=== PATIENT | male | born 1950 | race Caucasian/White ===

== ENCOUNTER 2024-05-20 13:45 | Outpatient (RCR) | payer OTHER, SELFPAY ==
[2024-04-07 15:21] VITALS: BP 140/58; PULSE 51; RESP 16; O2SAT 100
[2024-04-07 15:36] VITALS: PULSE 51
== END 2024-05-25 10:28 | disposition home or self-care (01) ==
LOC: ANHCPREHAB 13:45
PROVIDERS: PCP Family Medicine; Visit Provider Internal Medicine Cardiovascular Disease
DX: Z95.1 Presence of aortocoronary bypass graft (principal)
CPT/HCPCS: 93798

== ENCOUNTER 2025-02-23 12:32 | Emergency (ER) | payer OTHER, SELFPAY ==
[2025-02-23 12:38] VITALS: BP 127/71; PULSE 88; RESP 18; TEMP 38.4; O2SAT 98
--- NOTE | 2025-02-23 12:40 | ED.URI ---
HPI - URI/Sore Throat General Chief Complaint: Upper Respiratory Infection Stated Complaint: Fever Time Seen by Provider: 02/23/25 12:33 Source: patient Mode of arrival: ambulatory Limitations: no limitations History of Present Illness HPI Narrative: Patient is a 74-year-old male who presents with slight cough, congestion, fatigue and fever that started yesterday. States he took 2 500 mg Tylenol yesterday with the highest fever of 102.9. Has only taken 1 500 mg Tylenol today. Denies any nausea, vomiting, diarrhea, chest pain, shortness breath, body aches. Related Data Home Medications ?Medication ?Instructions ?Recorded ?Confirmed ?Last Taken ?Type amlodipine 5 mg tablet mg 02/23/25 Unknown History carvedilol 3.125 mg tablet mg 02/23/25 Unknown History eplerenone 25 mg tablet mg 02/23/25 Unknown History olmesartan 40 mg tablet mg 02/23/25 Unknown History rosuvastatin 40 mg tablet mg 02/23/25 Unknown History Allergies Allergy/AdvReac Type Severity Reaction Status Date / Time No Known Allergies Allergy Verified 02/23/25 12:33 Review of Systems Review of Systems: All systems reviewed & are unremarkable except as noted in HPI and below Constitutional: Constitutional: Denies chills, Reports fatigue, Reports fever(s), Denies headache(s), Denies malaise and Denies weakness Eyes: Eyes: Denies blurry vision, Denies itchy eyes and Denies loss of vision ENT: Denies otalgia, Denies headache(s), Reports nasal congestion, Denies sinus pain and Denies sore throat Cardiovascular: Cardiovascular: Denies chest pain, Denies irregular heart rhythm and Denies dyspnea Respiratory: Respiratory: Reports cough and Denies dyspnea Gastrointestinal: Gastrointestinal: Denies abdominal pain, Denies diarrhea, Denies nausea and Denies vomiting Musculoskeletal: Musculoskeletal: Denies back pain, Denies myalgias and Denies arthralgias Integumentary/Breasts: Skin/Breast: Denies pruritus and Denies rash Neurologic: Denies headache(s), Denies loss of vision and Denies weakness Psychiatric: Psychiatric: Reports no additional psychiatric complaints Endocrine: Endocrine: Denies fatigue Allergic/Immunologic: Allergic/Immunologic: Denies itchy eyes PMFSH Family History Family History Mother Hypertension High cholesterol Breast cancer Heart disease Heart attack Social History Social History Smoking status: Never smoker Comments At time of signature, agree with nursing past medical, surgical, social and family history. There is no relevant family history pertinent to the presenting complaint. Exam Const: General: cooperative, healthy appearing, comfortable, no acute distress and well nourished Nutritional Appearance: well nourished Orientation/consciousness: patient oriented x3 Limitations: no limitations HENMT: Head: normal to inspection, normocephalic and atraumatic Ears: hearing grossly normal bilaterally, external ears normal, TM's normal bilaterally, EAC's normal and no periauricular adenopathy Face/Nose/Sinus: Normal external nose present, Abnormal mucous membranes and turbinates present erythematous bilateral and diffuse, normal facial exam, sinuses nontender and face symmetric Face and sinus: normal facial exam, sinuses nontender and face symmetric Mouth: Yes Normal oral and palatal mucosa present, Yes lip normal, Yes tongue normal, Yes Normal salivary glands and ducts present, Yes oropharynx normal and Yes moist mucous membranes Teeth and gingiva: dentition normal Throat: posterior oropharynx normal, tonsils normal and uvula midline Eyes: General: appearance normal, both eyes and all related structures Alignment and Position: alignment normal and position normal Periorbital: periorbital findings normal Eyelids: eyelids normal Pupils: Equal, round and reactive pupils present Neck: Neck: normal visual inspection, full ROM, no lymphadenopathy and supple Chest: Chest palpation & inspection: normal inspection of the chest and normal palpation of entire chest wall Resp: Effort & Inspection: normal respiratory effort and able to speak in complete sentences Auscultation: clear to auscultation bilaterally, no crackles, no rales, no rhonchi and no wheezes Cardio: Rate: regular rate Rhythm: regular rhythm Heart sounds: S1 normal heart sound present and S2 normal heart sound present GI: Inspection: normal to inspection Skin: General skin exam: normal color and no rashes or lesions noted Neuro: General: patient oriented x3 and moves all extremities Cranial nerves: Yes Equal, round and reactive pupils present Speech: normal speech Gait exam (Neuro): Normal gait present Extrem: General: normal to inspection, full ROM and no edema Psych: Appearance: grossly normal and well kempt Mental Status: mental status grossly normal Speech and movement: Normal speech and movement present Affect: normal affect Attitude: cooperative Thought process: Normal thought process present Course Course Emergency Course: Discharge instructions reviewed with patient, as well as provided in writing per nursing staff. The instructions also include specific and strict return/GO TO THE ER as well as f/u information. All questions have been answered, and the patient deny any further questions with discharge and discharge plan. Portions of this record may have been created with voice recognition software Level of Care: Express Care Visit Vital Signs Vital signs: Vital Signs Temperature 38.4 C H 02/23/25 12:38 Pulse Rate 88 02/23/25 12:38 Respiratory Rate 18 02/23/25 12:38 Blood Pressure 127/71 02/23/25 12:38 Pulse Oximetry 98 02/23/25 12:38 Oxygen Delivery Room Air 02/23/25 12:38 Temperature 38.4 C H 02/23/25 12:38 Pulse Rate 88 02/23/25 12:38 Respiratory Rate 18 02/23/25 12:38 Blood Pressure 127/71 02/23/25 12:38 Pulse Oximetry 98 02/23/25 12:38 Oxygen Delivery Room Air 02/23/25 12:38 Reviewed MDM - URI/Sore Throat MDM Narrative Medical decision making narrative: Most likely viral in nature. Will send in Claritin and Flonase, instruct patient on dosing of Tylenol, and have patient follow up. Patient has PCP appointment in 1 week to follow-up blood work. Patient was told by human resources benefits manager that he may have kidney disease and anemia which will be managed by PCP. Pt well hydrated appearing, in no respiratory distress, hemodynamically stable. Recommend supportive care. The patient is stable at time of discharge the clinical impression was discussed and the patient was given the opportunity to ask questions, which were addressed as completely as possible given the information available at present. Anticipatory guidance and return to care precautions were discussed and the importance of primary care follow-up was stressed and encouraged. The patient voiced understanding of the plan, indications to return, and the need for follow-up. Exam findings show no acute concerns or changes Patient is appropriate for outpatient treatment and follow-up. Differential diagnosis considered: Guzman virus, strep pharyngitis, allergic rhinitis, upper respiratory tract infection, sinusitis, rhinosinusitis, nasopharyngitis. viral pharyngitis, otitis media, otitis externa, otitis effusion, foreign body, cerumen impaction, viral syndrome, and influenza.? Medical Records Attestation: I reviewed the patient's medical records. Lab Data Attestation: I reviewed the patient's lab results. Labs: Lab Results 02/23/25 Range/Units 12:57 POC Influenza A Ag Negative (Negative) POC Influenza B Ag Negative (Negative) POC SARS CoV-2 Ag Negative (Negative) Discharge Plan Discharge Clinical Impression: Upper respiratory infection Qualifiers: URI type: unspecified viral URI Qualified Code(s): J06.9 - Acute upper respiratory infection, unspecified Patient Disposition: Home Condition: Stable Instructions: Upper Respiratory Infection (ED) Additional Instructions: Your Covid and flu are both negative Your symptoms are likely due to a viral illness, which is not treated with antibiotics. Viral symptoms can be present for up to a few weeks. -For pain/fever, you may take: Tylenol 500-1000mg by mouth every 4-6 hours. Do not exceed 4000mg in 24 hours. -Antihistamine medication such as Benadryl/Zyrtec at night and Claritin/Hermila during the day can help improve symptoms. -Use Flonase twice a day for 5 days then daily to help reduce the inflammation and dry up your sinuses. -Eat and drink things that are easy to swallow, like tea or soup, or popsicles. -Oral rinses such as: Salt water gargles and/or may use topical anesthetic (eg. Chloraseptic spray) or lozenges to relieve dryness or throat pain). -Frequent hand washing or hand ged instructor is one of the best ways to prevent spread of infection. -Using a vaporizer or humidifier at night will also help thin secretions and help with coughing up phlegm. Call your Primary Care Doctor and make a follow-up appointment in 3 days. If your cough worsens, you develop a fever greater than 103, you develop shaking chills, a fast heartbeat, trouble breathing and/or feel you are are breathing much faster than usual, call your Primary Care Doctor or go to the ER. Patient Language: Eritrean Prescriptions: New fluticasone propionate [Flonase Allergy Relief] 50 mcg/actuation spray,suspension 1 spray intranasal DAILY Qty: 16 0RF Rx Instructions: administer into each nostril loratadine 10 mg tablet 10 mg PO DAILY Qty: 30 0RF No Action amlodipine 5 mg tablet carvedilol 3.125 mg tablet olmesartan 40 mg tablet eplerenone 25 mg tablet rosuvastatin 40 mg tablet Follow-up/Referrals: Chucky,Wilber Stoner MD [Primary Care Provider] - 1 Week Time of Disposition: 13:17
[2025-02-23 12:59] LABS: EDCOVIDSCREEN Negative (Negative); EDINFLUASCREEN Negative (Negative); EDINFLUBSCREEN Negative (Negative)
--- OUTSIDE RECORDS SUMMARY | 2025-02-23 14:13 | XMS_ITS | Encounter Summary ---
Author Organization [facility] Address [address] [place] [address] Phone Care Team Providers Care Transitional Studies Instructor Name Role Phone Wilber Locke MD Primary Care Provider [phone] Mark Wright MD Unavailable [phone] Unknown, Notinfile Unavailable Unavailable Encounter Details Date Type Department Care Team (Late st Contact Info) Description 02/12/2025 Results Follow-Up [facility] Medicine Cardiology [address] [facility] [address] [place] [address] [place] [address] Antione Braun MD [address] [facility] [address] [place], [place] [id number] CBC with auto differential, Comprehensive metabolic panel, ECG 12 lead Social History Tobacco Use Types Packs/Day Years Used Date Smoking Tobacco: Never Passive Smoke Exposure: Never Smokeless Tobacco: Never OASIS D0700: Social Isolation Answer Da te Recorded Frequency of experiencing loneliness or isolatio n Never 02/06/2024 OASIS A1250: Transportation Answer Date Recorded Lack of Transportation (Medical) No 02/06/2024 Lack of Transportation (Non-Medical) No 02/06/2024 Patient Unable or Declines to Respond No 02/06/2024 OASIS B1300: Health Literacy Answer Leandro e Recorded Frequency of needing help to read materials from doctor or pharmacy Never 02/06/2024 AUDIT-C Answer Date Recorded Q1: How often do you have a drink containing alc ohol? 2-3 times a week 01/08/2024 Q2: How many drinks containi ng alcohol do you have on a typical day when you are drinking? 1 or 2 01/08/2024 Q3: How often do you have si x or more drinks on one occasion? Never 01/08/2024 Personal Safety Answer Date Recorded Have you ever been in or are you currently in a harmful physical or emotional relationship or is someone making you feel afraid or unsafe? 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
--- OUTSIDE RECORDS SUMMARY | 2025-02-23 14:13 | XMS_ITS | Encounter Summary ---
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
--- OUTSIDE RECORDS SUMMARY | 2025-02-23 14:13 | XMS_ITS | Encounter Summary ---
Author Organization [facility] Address [address] [place] [address] Care Team Providers Care Shoe Sewing Machine Operator And Tender Name Role Phone Wilber Locke MD Primary Care Provider [phone] Elisa Santiago RN Unavailable [phone] Encounter Details Date Type Department Care Team (Late st Contact Info) Description 09/30/[address] [facility] CONVERSION [address] [place] [address] , Generic MD Nerissa Social History Tobacco Use Types Packs/Day Years Used Date Smoking Tobacco: Never Sex and Gender Information Value Date Recorded Sex Assigned at Male 07/25/2018 9:38 AM CDT Legal Sex Male 1:49 AM CDT Gender Identity Male 07/25/2018 9:38 AM CDT Sexual Orientation Straight 07/25/2018 9: 38 AM CDT documented as of this encounter Plan of Treatment Upcoming Encounters Date Type Department Care Team (Late st Contact Info) Description 03/03/2025 3:20 PM AUTO PAINTER Office Visit [facility] Family & Internal Medicine [facility] [address] [place] [address] [place] [address] [place], [place] [id number] documented as of this encounter Visit Diagnoses Not on filedocumented in this encounter Care Teams Shoe Sewing Machine Operator And Tender Relationship Specialty [place] [address] [place] [address] PCP - General FAMILY PRACTICE 07/25/18 Elisa Santiago, RN [address] [place] [address] Vehicle Delivery Worker (Ambulatory) REGISTERED NURSE 01/10/24 documented as of this encounter
--- OUTSIDE RECORDS SUMMARY | 2025-02-23 14:13 | XMS_ITS | Clinical Summary ---
Author Organization [facility] Address [address] [place] [address] Care Team Providers Care Tire Buffer Name Role Phone Wilber Locke MD Primary Care Provider [phone] Mark Wright MD Unavailable [phone] Unknown, Notinfile Unavailable Unavailable Allergies No known active allergies Medications aspirin 81 mg enteric coated tabletIndicati ons:prevention of thrombosis,may nts Take 1 tablet (81 mg total) by mouth nightly Active fluticasone propionate (FLONASE) 50 mcg/actuation nasal spray Administer 1 spray into each nostril as needed 05/21/19 25 Active coenzyme Q10 (CoQ-10) 100 mg capsule Take 1 capsule (100 mg total) by mouth daily Active omega-3 fatty acids-fish oil 300-1,000 mg capsule Take 2 capsules (2 g total) by mouth daily Active olmesartan (BENICAR) 40 mg tablet Take 1 tablet (40 mg total) by mouth daily 90 tablet 3 07/23/19 25 026 Active amLODIPine (NORVASC) 5 mg tablet Take 1 tablet (5 mg total) by mouth daily 30 tablet 11 07/23/19 25 Active rosuvastatin (CRESTOR) 40 mg tabletIndicati ons:coronary artery disease Take 1 tablet (40 mg total) by mouth daily 90 tablet 3 08/25/19 25 Active eplerenone (INSPRA) 25 mg tablet TAKE 1 TABLET (25 MG TOTAL) BY MOUTH DAILY. 90 tablet 3 02/02/20 25 Active coenzyme Q96-qosjazu E 100-5 mg-unit capsule Take 100 mg by mouth daily Active eplerenone (INSPRA) 25 mg tablet Take 1 tablet (25 mg total) by mouth daily 30 tablet 11 04/15/20 24 025 Discontinued carvediloL (COREG) 3.125 mg tablet Take 1 tablet (3.125 mg total) by mouth 2 (two) times a day with meals 60 tablet 11 12/25/19 25 025 Discontinued Active Problems Problem Noted Date Diagnosed Date Acute blood loss anemia 01/10/2024 Assessment & Plan (01/10/2024 12:39 PM CDT): Expected post cardiac surgery Hgb stable at 7.4, chest tube output slowing Plts 90 from 97 Continue to trend CBC, will hold DVT ppx if needed Thrombocytopenia 01/10/2024 Assessment & Plan (01/11/2024 11:23 AM CDT): Up trending, continue DVT ppx Acute post-operative pain 01/10/2024 Assessment & Plan (01/11/2024 11:22 AM CDT): Expected post cardiac surgery Continue scheduled APAP, oxy PRN Coronary artery disease (CAD) excluded 4 Coronary artery disease 01/01/2024 Assessment & Plan (01/11/2024 11:22 AM CDT): S/p CABG x 3 on 01/07 Tubes and wires out 2vCXR post tube removal Continue metoprolol, titrate as tolerated Started low diuresis today PT/OT recs for home Aggressive IS Bowel regimen Abnormal stress echo 12/20/2023 Angina pectoris, unstable 12/20/2023 Deviated nasal septum 07/04/2020 Allergic rhinitis 07/04/2020 Hypertrophy of nasal turbinates 07/04/2020 Coronary artery disease invo lving [place] coronary artery of [place] heart without angina pectoris 11/13/2017 History of non-ST elevation myocardial infarctio n (NSTEMI) 11/13/2017 Essential hypertension 11/13/2017 Assessment & Plan (01/10/2024 12:36 PM CDT): Q4h vitals Holding home amlodipine and olmesartan post op Low dose metoprolol started Non-ST elevation (NSTEMI) myocardial infarction 10/12/2014 History of coronary artery stent placement 10/12 Assessment & Plan (01/10/2024 12:38 PM CDT): PCI hx in 1999, 2014, and 2015 Encounters Date Type Department Care Team Description 02/12/2025 Results Follow-Up [facility] Cardiology [address] [place] [address] 8th [place] [address] [place] [address] Antione Braun MD CBC with auto differential, Comprehensive metabolic panel, ECG 12 lead 02/10/2025 2:15 PM CDT Office Visit [facility] Cardiology [address] [place] [address] 8th [place] [address] [place] [address] Antione Braun MD Coronary artery disease involving [place] coronary artery of [place] heart without angina pectoris (Primary Dx); Frequent PVCs; Weight loss, unintentional; Essential hypertension; Mild left ventricular systolic dysfunction 12/28/2024 Results Follow-Up Cardiology Antione Braun MD Basic metabolic panel 12/24/2024 Orders Only [facility] Cardiology [address] [place] [address] 8th [place] [address] [place] [address] Antione Braun MD Muscle weakness (Primary Dx) from Last 3 Months Surgical History Surgery Date Site/Laterality Comments CORONARY STENT PLACEMENT 10/15/20141999 CORONARY STENT PLACEMENT 04/29/1999 - 04/28/2000 CORONARY STENT PLACEMENT 04/29/2005 - 04/28/2006 KIDNEY STONE SURGERY COLONOSCOPY 04/29/2018 - 04/28/2019 Medical History Medical History Date Comments Acute myocardial infarction Acut e myocardial infarction, subsequent episode of care - (Added by TW Conv) Hypertension Cataract Sinusitis Coronary artery disease ME (myocardial infarction) (HCC) x 3 Hyperlipidemia Sleep apnea Family History Medical History Relation Name Comments No Known Problems Father Hypertension Mother Family history of hypertension - (Added by TW Conv) Hypertension Sister Family history of hypertension - (Added by TW Conv) Anesthesia problems Neg Hx Relation Name Status Comments Father Mother Sister Social History Tobacco Use Types Packs/Day Years [...] on file 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 Gender Identity Not on file Sexual Orientation Not on file Obstetrics History Last Filed Vital Signs Vital Sign Reading Time Taken Comments Blood Pressure 117/76 02/10/2025 2:11 PM CDT Pulse 63 02/10/2025 2:11 PM CDT Temperature 36.8 C (98.2 F) 02/24/2024 2:31 PM CDT Respiratory Rate 16 02/06/2024 11:55 AM CDT Oxygen Saturation 99% 02/10/2025 2:11 PM CDT Inhaled Oxygen Concentration - - Weight 71.4 kg (157 lb 6.4 oz) 02/10/2025 2:11 P M CDT Height 177.8 cm (5' 10) 02/10/2025 2:11 PM CDT Body Mass Index 22.58 02/10/2025 2:11 PM CDT Plan of Treatment Health Maintenance Due Date Last Done Comments Colon Cancer Screening-Colonoscopy 1950 Depression Screening 1950 Hepatitis C Screening 1950 Hepatitis B Screening 11/01/1969 Pneumococcal vaccine 65+ (1 of 1 - PCV) 11/01/2001 Well Visit 65+ 11/01/2016 DTaP/Tdap/Td Vaccine (1 - Tdap) 02/08/2023 Covid-19 Vaccine (3 - season) 12/28/202407/2020, 08/09/2020 Influenza Vaccine (#1) 2024 Fall Risk Assessment 01/11/2025 01/12/2024 Zoster Vaccine Completed 03/28/2023, 11/06/2022 Medical Devices Implanted Type Area Circle Cutting Saw Operator Device Identifier Shelf Expiration Date Model / Serial / Lot [employer] Angio-Seal Vip 6fr Closere Device [id number] - [id number] - [id number] Implanted:Qty : 1 on 12/31/2023 by August Kasper MD at [facility] Collagen Right: Common Femoral Artery [employer] 08/11/2024 [id number] / [id number] / [id number] Stent Implanted:Qty : 3 Stent N/A: Coronary Artery Description:1999,2005,2014 Procedures Procedure Name Priority Date/Time Associated Diagnosis Comments COMPREHENSIVE METABOLIC PANEL Routine 02/11/2025 8:13 AM CDT Frequent PVCs Weight loss, unintentional CBC WITH AUTO DIFFERENTIAL Routine 02/11/2025 8:13 AM CDT Frequent PVCs Weight loss, unintentional ECG 12-LEAD Routine 02/10/2025 3:12 PM CDT Frequent PVCs BASIC METABOLIC PANEL Routine 12/25/2024 12:28 PM CDT Muscle weakness from Last 3 Months Results * (ABNORMAL) CBC with auto differential (02/11/2025 8:13 AM CDT) WBC 9.7 3.8 - 10.8 Thousand/u L [facility] RBC, POC 4.24 4.20 - 5.80 Million/uL [facility] Hgb 12.9(L) 13.2 - 17.1 g/dL [facility] Hct 39.2 38.5 - 50.0 % [facility] MCV 92.5 80.0 - 100.0 fL [facility] MCH 30.4 27.0 - 33.0 pg [facility] MCHC 32.9 32.0 - 36.0 g/dL [facility] Comment: For adults, a slight decrease in the calculated MCHC value (in the range of 30 to 32 g/dL) is most likely not clinically significant; however, it should be interpreted with caution in correlation with other red cell parameters and the patient's clinical condition. Rdw 13.6 11.0 - 15.0 % [facility] Platelets 140 140 - 400 Thousand/u L [facility] MPV 11.1 7.5 - 12.5 fL [facility] Neutrophils, abs 7,285 1,500 - 7,800 cells/uL [facility] Lymphocytes, abs 1,348 850 - 3,900 cells/uL [facility] Monocyte abs 737 200 - 950 cells/uL [facility] Eosinophils, abs 291 15 - 500 cells/uL [facility] Basophils, abs 39 0 - 200 cells/uL [facility] Neutrophils 75.1 % [facility] Lymphocyte pct 13.9 % [facility] Monocytes 7.6 % [facility] Eosinophils 3.0 % [facility] Basophils 0.4 % [facility] Blood 02/11/2025 8:13 AM CDT 02/11/2025 8:14 AM CDT us Antione Braun MD LAB BLOOD ORDERABLES Final Re sult [facility] [id number] [place] [id number] * (ABNORMAL) Comprehensive metabolic panel (02/11/2025 8:13 AM CDT) [facility] Glucose 91 65 - 99 mg/dL [facility] Comment: Fasting reference interval BUN 30(H) 7 - 25 mg/dL [facility] Creatinine 1.57(H) 0.70 - 1.28 mg/dL [facility] eGFR 46(L) > OR = 60 mL/min/1.7 3m2 [facility] BUN/creat ratio 19 6 - 22 (calc) [facility] Sodium 138 135 - 146 mmol/L [facility] Potassium, pl 4.3 3.5 - 5.3 mmol/L [facility] Chloride 102 98 - 110 mmol/L [facility] CO2 29 20 - 32 mmol/L [facility] Calcium 9.5 8.6 - 10.3 mg/dL [facility] Protein, sr 6.9 6.1 - 8.1 g/dL [facility] Albumin 4.2 3.6 - 5.1 g/dL [facility] GLOBULIN 2.7 1.9 - 3.7 g/dL (calc) [facility] Alb/glob ratio 1.6 1.0 - 2.5 (calc) [facility] Bilirubin, total 0.9 0.2 - 1.2 mg/dL [facility] Alk phos 63 35 - 144 U/L [facility] AST 22 10 - 35 U/L [facility] ALT (SGPT) 15 9 - 46 U/L [facility] Blood 02/11/2025 8:13 AM CDT 02/11/2025 8:14 AM CDT us Antione Braun MD LAB BLOOD ORDERABLES Final Re sult [facility] [id number] [place] [id number] * ECG 12 lead (02/10/2025 3:12 PM CDT) us Antione Braun MD ECG ORDERABLES Edited Result - Final * (ABNORMAL) Basic metabolic panel (12/25/2024 12:28 PM CDT) Glucose 81 65 - 99 mg/dL [facility] Comment: Fasting reference interval BUN 29(H) 7 - 25 mg/dL [facility] Creatinine 1.43(H) 0.70 - 1.28 mg/dL [facility] eGFR 52(L) > OR = 60 mL/min/1.7 3m2 [facility] BUN/creat ratio 20 6 - 22 (calc) [facility] Sodium 139 135 - 146 mmol/L [facility] Potassium, pl 4.3 3.5 - 5.3 mmol/L [facility] Chloride 104 98 - 110 mmol/L [facility] CO2 29 20 - 32 mmol/L [facility] Calcium 9.3 8.6 - 10.3 mg/dL [facility] Blood 12/25/2024 12:2 8 PM CDT 12/25/2024 12:28 PM CDT us Antione Braun MD LAB BLOOD ORDERABLES Final Re sult [facility] [id number] [place] [id number] from Last 3 Months Insurance 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
--- OUTSIDE RECORDS SUMMARY | 2025-02-23 14:13 | XMS_ITS | Encounter Summary ---
Author Organization [facility] Address [address] [place] [address] Care Team Providers Care Investigative Writer Name Role Phone Wilber Locke MD Primary Care Provider [phone] Elisa Santiago RN Unavailable [phone] Encounter Details Date Type Department Care Team (Late st Contact Info) Description 01/23/2019 Prep for Procedure [facility] [address] [place], [place] [id number] Regine Hamilton, EQUIPMENT MAINTENANCE ENGINEER [address] [place] [address] Social History Tobacco Use Types Packs/Day Years Used Date Smoking Tobacco: Never Smokeless Tobacco: Never Alcohol Use Standard Drinks/Week Comments Yes 0 (1 standard drink = 0.6 oz pur e alcohol) rarely AUDIT-C Answer Date Recorded Frequency of Alcohol Consumption Monthly or less 07/25/2018 Average Number of Drinks Not on file 019 Frequency of Binge Drinking Not on file 06/28 Education Answer Date Recorded What is the highest level of school you have completed or the highest degree you have received? Bachelor's degree (e.g., BA, AB, BS) 07/25/2018 Sex and Gender Information Value Date Recorded Sex Assigned at Male 07/25/2018 9:38 AM CDT Legal Sex Male 1:49 AM CDT Gender Identity Male 07/25/2018 9:38 AM CDT Sexual Orientation Straight 07/25/2018 9: 38 AM CDT documented as of this encounter Plan of Treatment Upcoming Encounters Date Type Department Care Team (Late st Contact Info) Description 03/03/2025 3:20 PM TRIM DIE MAKER Office Visit [facility] Family & Internal Medicine [facility] [address] [place] [address] [place] [address] [place] [address] documented as of this encounter Visit Diagnoses Diagnosis Pre-op testing- Primary Preoperative examination, unspecified documented in this encounter Care Teams Investigative Writer Relationship Specialty [place] [address] [place] [address] PCP - General FAMILY PRACTICE 07/25/18 Elisa Santiago, RN [address] [place], [place] [id number] Marionette Performer (Ambulatory) REGISTERED NURSE 01/10/24 documented as of this encounter
--- OUTSIDE RECORDS SUMMARY | 2025-02-23 14:13 | XMS_ITS | Clinical Summary ---
Author Organization [facility] Address [facility] [place] [address] Care Team Providers Care Wet Pour Supervisor Name Role Phone Wilber Locke MD Primary Care Provider [phone] Allergies No known active allergies Medications acetaminophen (TYLENOL) 500 MG tablet Take 2 tablets (1,000 mg total) by mouth every 6 (six) hours as needed for Pain. Active Senna (SENOKOT) 8.6 MG tablet Take 1 tablet (8.6 mg total) by mouth 2 (two) times daily as needed for Constipation. Active aspirin EC (ECOTRIN) 81 MG tablet Take 1 tablet (81 mg total) by mouth nightly. Active polyethylene glycol (GLYCOLAX) packet Take 240 mLs (17 g total) by mouth daily as needed for Constipation. Dissolve powder in 240 mL water Active B Complex Vitamins (VITAMIN B-COMPLEX) Tab Take 1 tablet by mouth daily. Active eplerenone (INSPRA) 25 MG tablet Take 1 tablet (25 mg total) by mouth daily. 4 Active rosuvastatin (CRESTOR) 40 MG tablet Take 1 tablet (40 mg total) by mouth daily. 4 Active olmesartan (BENICAR) 20 MG tablet Take 2 tablets (40 mg total) by mouth daily. 4 Active fluticasone propionate (FLONASE) 50 MCG/ACT nasal sprayIndications :Seasonal allergic rhinitis, unspecified trigger 1 spray by Nasal route daily. 16 g 5 Active amLODIPine (NORVASC) 5 MG tablet Take 1 tablet (5 mg total) by mouth daily. 5 Active carvedilol (COREG) 6.25 MG tablet Take 1 tablet (6.25 mg total) by mouth 2 (two) times daily. 5 Active coenzyme Q-10 (CO Q-10) 100 MG capsule Take 1 capsule (100 mg total) by mouth daily. Active [place] 3 1000 MG Cap Take 2 g by mouth daily. Active olmesartan (BENICAR) 40 MG tablet Take 1 tablet (40 mg total) by mouth daily. 5 07/23/19 26 Active Active Problems Problem Noted Date Diagnosed Date Acute blood loss anemia 01/10/2024 Acute post-operative pain 01/10/2024 Thrombocytopenia 01/10/2024 Coronary artery disease (CAD) excluded Abnormal stress echo 12/20/2023 Angina pectoris, unstable 12/20/2023 Allergic rhinitis 07/04/2020 Deviated nasal septum 07/04/2020 Hypertrophy of nasal turbinates 07/04/2020 History of non-ST elevation myocardial infarctio n (NSTEMI) 11/13/2017 Obstructive sleep apnea 05/28/2017 Coronary artery disease invo lving [place] coronary artery of [place] heart without angina pectoris 10/25/2014 History of coronary artery stent placement 10/12 Hypercholesterolemia 02/26/2014 Essential hypertension 02/26/2014 Resolved Problems Problem Noted Date Diagnosed Date Resolved Date Wears glasses 05/13/2017 01/08/2020 Non-ST elevation (NSTEMI) my ocardial infarction 10/12/2014 12/21/2020 Immunizations Immunization Administration Dates Next Due Influenza Adult (Generic) 05/02/2023(Def erred: Patient/family declined) PFIZER COVID-19 (ORIGINAL FORMULATION, PURPLE CAP) mRNA, LNP-S, PF, 30 MCG/0.3 ML DOSE 08/30/2020,08/09/2020 Shingrix 03/28/2023,11/06/2022 Td (Tenivac) preservative free 02/07/2023 Family History Medical History Relation Comments Heart Attack Father None Father Cancer Mother bladder Hypertension Sister Relation Status Comments Brother Alive Father Mother Alive Sister Alive Social History Tobacco Use Types Packs/Day Years Used Date Smoking Tobacco: Never Smokeless Tobacco: Never Tobacco Cessation:Counseling Given: No Alcohol Use Standard Drinks/Week Comments Yes 0 (1 standard drink = 0.6 oz pur e alcohol) rarely AUDIT-C Answer Date Recorded Frequency of Alcohol Consumption Monthly or less 07/25/2018 Average Number of Drinks Not on file 019 Frequency of Binge Drinking Not on file 06/28 Overall Financial Resource Strain (CARDIA) Answe r Date Recorded How hard is it for you to pa y for the very basics like food, housing, medical care, and heating? Not hard at all 01/13/2024 PHQ-2 Answer Date Recorded Patient Health Questionnaire-2 Score 0 07/31/2024 Hunger Vital Sign Answer Date Recorded Within the past 12 months, y ou worried that your food would run out before you got the money to buy more. Never true 01/13/20 24 Within the past 12 months, t he food you bought just didn't last and you didn't have money to get more. Never true 01/13/2024 PRAPARE - Transportation Answer Date Re corded In the past 12 months, has l ack of transportation kept you from medical appointments or from getting medications? No 12/28 In the past 12 months, has l ack of transportation kept you from meetings, work, or from getting things needed for daily living? No 01/13/2024 Housing Stability Vital Sign Answer Leandro e Recorded In the last 12 months, was t here a time when you were not able to pay the mortgage or rent on time? No 01/13/2024 In the past 12 months, how m any times have you moved where you were living? 1 01/13/2024 At any time in the past [address] [facility], were you homeless or living in a fdc (including now)? No 01/13/2024 Education Answer Date Recorded What is the [...] Orientation Straight 07/25/2018 9: 38 AM CDT Last Filed Vital Signs Vital Sign Reading Time Taken Comments Blood Pressure 141/82 07/31/2024 9:44 AM CDT Pulse 50 07/31/2024 9:44 AM CDT Temperature 37 C (98.6 F) 07/31/2024 9:44 AM CDT Respiratory Rate 16 07/31/2024 9:44 AM CDT Oxygen Saturation 100% 07/31/2024 9:44 AM CDT Inhaled Oxygen Concentration - - Weight 74.8 kg (165 lb) 07/31/2024 9:44 AM CDT Height 177.8 cm (5' 10) 07/31/2024 9:44 AM CDT Body Mass Index 23.68 07/31/2024 9:44 AM CDT Plan of Treatment Upcoming Encounters Date Type Department Care Team (Late st Contact Info) Description 03/03/2025 3:20 PM NOUGAT CANDY MAKER HELPER Office Visit [facility] Family & Internal Medicine - [place] [address] [place] [address] [place] [address] [place] [address] Health Maintenance Due Date Last Done Comments Hepatitis C 11/01/1969 Pneumococcal Vaccine: 50+ Years (1 of 2 - PCV) 11/01/1970 RSV Immunization or 60+ Years (1 - Risk 60-74 years 1-dose series) 2011 Annual Medicare Wellness Visit 11/01/2016 DTaP, Tdap and Td Vaccines ( 1 - Tdap) 02/08/2023 02/07/2023 COVID-19 Vaccine (3 - 2024-2 6 season) 2024 08/30/2020, 08/09/2020 Influenza Adult (#1) 2025 Colorectal Cancer Screening Colonoscopy (10 Years) 01/30/2029 01/30/2019, 01/30/2019 Zoster Vaccines Completed 03/28/2023, 11/06/2022 PHQ-2 (Physician [place]) Completed 07/31/2024 Hepatitis A Vaccines Aged Out No long er eligible based on patient's age to complete this topic Meningococcal B Vaccine Aged Out No l onger eligible based on patient's age to complete this topic Meningococcal Vaccine Aged Out No jeimy sarah eligible based on patient's age to complete this topic RSV Immunizations Under 20 Months Aged Out No longer eligible b ased on patient's age to complete this topic Procedures Procedure Name Priority Date/Time Associated Diagnosis Comments COLONOSCOPY GENERIC (SCAN ORDER) Routine 01/30/2019 from Last 3 Months or Most Recently Relevant to Health Maintenance Results * COLONOSCOPY (01/30/2019) us Documents Scanned SCANNING Final Result Performing Organization Address City/State/[facility] Co de Phone Number [facility] [address] [address] from Last 3 Months or Most Recently Relevant to Health Maintenance Insurance [employer] Care Teams Wet Pour Supervisor Relationship Specialty [place] [address] [place] [address] PCP - General FAMILY PRACTICE 07/25/18
== END 2025-02-23 13:18 | disposition home or self-care (01) ==
PROVIDERS: Emergency Provider Nurse Practitioner Family; PCP Family Medicine
DX: J06.9 Acute upper respiratory infection, unspecified (principal); Z20.822 Contact with and (suspected) exposure to COVID-19; I25.10 Atherosclerotic heart disease of native coronary artery without angina pectoris; I10 Essential (primary) hypertension; I25.2 Old myocardial infarction; E78.00 Pure hypercholesterolemia, unspecified; M19.90 Unspecified osteoarthritis, unspecified site; Z95.5 Presence of coronary angioplasty implant and graft
CPT/HCPCS: 87426; 87804; 99213; G0463